=== PATIENT | female | born 1960 | race Caucasian/White ===

== ENCOUNTER → 2017-04-25 | Day surgery (SDC) | payer OTHER ==
[2017-04-25] VITALS (9 sets, daily range): BP systolic 130–145; BP diastolic 68–89; PULSE 88–101; RESP 13–17; O2SAT 96–100
[~2017-04-25] VITALS: Ht 162.6 cm; Wt 86.2 kg
[~2017-04-25] MED LIST: Dexamethasone 4 mg/mL Inj IVPUSH PRN; EPHEDrine Sulfate 50 mg/mL Inj IVPUSH PRN; HYDROmorphone 0.5 mg/0.5 mL iSecure Syringe ONE; HYDROmorphone 1 mg/mL Inj IVPUSH PRN; KEN25CR EXT; Lactated Ringer's 1,000 ML IV ONE; Lactated Ringer's 1,000 ML IV SCH; Lactated Ringer's 500 ML IV PRN; MetoCLOpramide 5 mg/mL 2 mL Inj IVPUSH PRN; Ondansetron 2 mg/mL 2 mL Inj IVPUSH PRN; Phenylephrine 10,000 mCg/mL Inj IVPUSH PRN; TRAM50TA2 PO; fentaNYL-PF 50 mCg/mL 2 mL Inj ONE; oxyCODONE-Acetamin 10-325 mg Tablet PO PRN
[2017-04-25] MEDS: CeFAZolin 2 Gm/50 mL D5W IV Premix IV ONE ×2 (12:28→12:41)
--- NOTE | 2017-04-25 13:05 | PCM.HPANE ---
Patient Data Date of Service: Apr 25, 2017 Surgeon Admitting Provider: Attending Provider:Alejandro Lee MD Primary Care Physician:Percy Mccormick MD Other Provider:Uche Aguila Anesthesia Reason for Visit Bilateral Thigh Masses Ht/WT & BMI Height (Feet): 5 Height (Inches): 4.00 Weight (Kilograms): 86.180 Body Mass Index 32.00 Allergies Coded Allergies: erythromycin base (Verified Allergy, Unknown, vomiting, 04/18/17) Past Anesthesia History Anesthesia History: Denies:: Abnormal Airway, Anesthesia Reactions, Difficult Intubation, Fam Anesthesia Reaction, Fam Malignant Hypertherm, Malignant Hyperthermia Diabetes History Hx Diabetes?: No MRSA MRSA: No Medications Hypertension Medication: No Home Meds Incl Beta Ari: No Reported Medications Triamcinolone Acet (Triamcinolone Acetonide Cream)1 Applic/0.25 Gm Cr1 Applic EXT BID #60 GM Ref 0 04/18/17 Tramadol 50 Mg [id number] Mg PO Q8H PRN For Pain Ref 0 04/18/17 Discontinued Reported Medications Omeprazole 20 Mg Capsule.dr20 Mg PO DAILY Ref 0 04/06/16 Lactobacillus Combo No.11 (Probiotic)1 Each Cap.sprink1 Each PO DAILY 04/05/16 Tramadol 50 Mg Plbmsr67 Mg PO Q4H PRN For Pain Ref 0 04/05/16 Loperamide HCl (Anti-Diarrheal)1 Mg/7.5 Ml Liquid1 Mg PO 04/05/16 History History of ENT Problems?: No HEENT History: Denies:: Abnormal Airway Cataracts Difficult Intubation Glaucoma Hearing Problem Denture Type: None Teeth Condition: Within Normal Limits Hx of Heart Problems?: No Cardiovascular History: Denies:: AICD Chest Pain Edema Heart Murmur Hypertension Irregular Heartbeat Pacemaker Peripheral Vascular Rheumatic Fever Hx of Respiratory Problem?: Yes Respiratory History: Positive for:: Use of C-PAP Machine Denies:: Asthma COPD Emphysema Oxygen Administration Pneumonia Tuberculosis Use of Inhalers / NEBS Hx Neurologic Problems?: No Neurological History: Denies:: Alzheimer's Disease CVA Headaches Multiple Sclerosis Parkinson's Disease Seizures Hx of GI Problems?: Yes Hx of Problems?: No Genitourinary History: Denies:: Kidney Stones Urinary Tract Infection Female Hx: Denies:: Currently (tubal ligation) Skin History: Denies:: History Skin Disorders? Pressure Ulcers Hx Musculoskeletal Problems?: No Musculoskeletal History: Positive for:: Back Injury (hx of L5S1 micro discectomy) Fibromyalgia Osteoarthritis Denies:: Musculoskeletal Trauma Psycho Social History: Positive for:: Anxiety Hx Surgeries?: Yes (tubal ligation,lump removed left axilla, micro discectomy) Hx Any Other Health Problems?: Yes Other History: Denies:: Cancer Thyroid Disease History Blood Transfusions: Positive for:: Accept Blood Products? Denies:: Blood Transfusions Hx Diabetes: No Hx Alcohol Use: YesAlcoholic Drinks Per Day: 2 x weekHx Substance Use: No Smoking Status: Never Smoker Have You Smoked inLast 12 mo: No Stop/Bang Treated for Sleep Apnea?: Yes Do You Have a CPAP Machine?: Yes S-Snoring: Do You Snore Loudly: Yes T-Tired: feel tired, fatigued: Yes O-Obsered: Observed not breath: Yes P-Blood Pressure: treated: No B- Body Mass Index > 35 kg/m2: No A- Age over 50: Yes N- Neck Large Circumference: No G- Gender Male: No JEWEL Total Score: 4 JEWEL Category 1: Yes (1b) Risk Assessment Category Category 1A: Patient has history of documented sleep apnea, and HAS NOT received any narcotic, sedative or anesthesia administration during this stay. Category 1B: Patient has history of documented sleep apnea, and HAS received any narcotic , sedative or anesthesia administration during this stay Category 2: Patient has SUSPECTED Obstructive Sleep Apnea, and HAS received any narcotic , sedative or anesthesia administration during this stay. Category 3: Patient has SUSPECTED Obstructive Sleep Apnea and HAS NOT received narcotic, sedative or anesthesia administration during this stay. Category 4: Outpatient in Procedural Areas with known sleep apnea or who screen positive for High Risk via the STOP/BANG questionnaire. Exam Exam Vital Signs Vital Signs Date Time Temp Pulse Resp B/P Pulse Ox O2 Delivery O2 Flow Rate FiO2 04/25/17 10:26 CPAP/BIPAP 04/25/17 10:21 36.2 88 14 140/76 100 Room Air General Appearance: Alert, Oriented X3, Cooperative HEENT/AIRWAY: MP 1 Lungs: Clear to Auscultation Heart: Exam Unremarkable Meds/Labs/Diagnostics Admission Meds Current Medications Cefazolin Sodium/ Dextrose 2 gm/ Premix 50 ml @ 100 mls/hr PREOP ONCE IV Last administered on 04/25/17t 12:28; Start 04/25/17 at 06:00; Stop 04/25/17 at 06:29; Status DC Lactated Ringer's (Lr) 1,000 ml @ ud STK-MED ONCE IV Last administered on 04/25 10:26; Start 04/25/17 at 10:26; Stop 04/25/17 at 10:27; Status DC Plan Impression Patient chart reviewed, patient interviewed and anesthestic plan with risks, benefits, and alternatives discussed, and informed consent obtained. NPO per Anesth. Guidelines: Yes ASA Physical Status: ASA2 Mod Systemic Disease Anesthetic Plan: GA Bene/Risks/Altern/Consents: Yes HP Complete Prior to Induction: Yes Logan Sal MD Apr 25, 2017 13:05
[2017-04-25] MEDS: fentaNYL-PF 50 mCg/mL 2 mL Inj IVPUSH PRN ×2 (14:15→14:20)
--- NOTE | 2017-04-25 15:28 | PCM.ANEP1 ---
Post Anesthesia PACU Phase 1 Assessment Vital Signs Vital Signs Date Time Temp Pulse Resp B/P Pulse Ox O2 Delivery O2 Flow Rate FiO2 04/25/17 15:10 101 16 145/88 97 Room Air 04/25/17 15:02 93 15 137/86 97 Room Air 04/25/17 14:55 97 17 134/82 98 Room Air 04/25/17 14:40 98 17 133/86 96 Room Air 04/25/17 14:25 96 15 130/68 100 Nasal Cannula 2 04/25/17 14:20 93 17 138/87 97 Nasal Cannula 3 04/25/17 14:15 97 15 131/89 97 Nasal Cannula 3 04/25/17 14:10 36.6 95 13 143/86 96 Nasal Cannula 3 04/25/17 10:26 CPAP/BIPAP 04/25/17 10:21 36.2 88 14 140/76 100 Room Air Anesthetic Administered: GA Level of Alertness: Awake, talking Pain: Yes Pain Scale Score: 4 Nausea or Vomiting: No CV Function & Hydration Stable: Yes Airway Device: Oxygen Delivery: Room Air Lungs: Clear to Auscultation PACU Phase 2 Assessment Patient Instructions Provided: Yes Logan Sal MD Apr 25, 2017 15:28
--- NOTE | 2017-04-30 10:07 | OP ---
[address] [address] OPERATIVE REPORT PATIENT: JOSH BRICENO : 1960 MR#: [id number] ADMIT: 04/25/2017 JOB ID: [id number] DATE OF SURGERY: 04/25/2017 PREOPERATIVE DIAGNOSIS(ES): Bilateral thigh masses. POSTOPERATIVE DIAGNOSIS(ES): Bilateral thigh masses. PROCEDURE: 1. Excision of right lateral and posterior lateral thigh mass 5 cm in diameter. 2. Layered closure of right side defect, total length of layered closures 18 cm. 3. Excision of left thigh mass 6 cm. 4. Layered closure of left thigh defect total length of layered closure 20 cm. SURGEON: Alejandro Lee MD MERCHANT MILLER: Misha Aldana PA-C who was present for necessary retraction, exposure, and closure. DRAINS: Bilateral #10 round Rishabh drains, one on each side. SPECIMEN: 1. Right thigh mass to Pathology. 2. Left thigh mass to Pathology. INDICATIONS FOR PROCEDURE: This is a 56-year-old female patient with a history of slowly enlarging bilateral thigh masses. These masses did not decrease in size even with her reason significant weight loss. The patient also reports some pain and tenderness in the area. At this point, excision of the thigh masses are indicated for tissue diagnosis. PROCEDURE AND FINDINGS: The patient was identified in the preoperative area and surgical sites were marked. With the patient in standing position, I marked patient's bilateral thigh masses. The patient was then taken back to the operating room and placed supine on the operating table. Appropriate time-outs were taken. General anesthesia was induced smoothly. The patient was then turned into the prone position. The patient was then prepped and draped in the usual sterile manner. I first turned my attention to the left thigh mass. Incision was made in the ellipse that encompassed the width of the mass that was marked in the preoperative area. The ellipse was approximately 6 cm in diameter and approximately 20 cm in length. Incision was made with a #10 blade. This was deepened down into the subcutaneous tissue. The mass appears to have vague capsule. I was able to dissect the mass off of the surrounding soft tissue and excised without any difficulty. At this point, a drain was placed into the surgical site exiting through a posterior stab incision. A layer of 3-0 Vicryl [id number] sutures were then placed to reapproximate the Rudy's fascia. A layer of 3-0 Monocryl deep dermal sutures were then placed. At this point, there was some posterior standing cutaneous deformity. This was marked and excised with a #10 blade. The incision was then completely closed with a 3-0 Monocryl deep dermal suture and 4-0 Monocryl running subcuticular suture. I then turned my attention to the right thigh. Again, an ellipse was designed to encompass the mass that was marked preoperatively. The width of the ellipse was approximately 5 cm and the length was approximately 18 cm. Incision was made with a #10 blade. Again, the mass was excised with electrocautery. Hemostasis was obtained with electrocautery. A #10 round Rishabh drain was then placed in the surgical site exiting through a separate posterior stab incision. A layer of 3-0 Vicryl [id number] sutures were then placed, 3-0 Monocryl deep dermal sutures were then placed. Again posterior cutaneous deformity was marked and incised with a #10 blade. The rest of the incision was reapproximated with 3-0 Monocryl deep dermal suture, followed by 4-0 Monocryl running subcuticular suture. Skin glue was applied. The patient tolerated the procedure well. Needle count, sponge count, and instrument counts were correct at the end of the procedure. The patient was extubated and transported to recovery in stable condition.
--- NOTE | 2017-05-03 12:11 | PATH ---
SURGICAL PATHOLOGY Attending Physician:Alejandro Lee CASE STATUS: Signed Out PATIENT NAME: JOSH BRICENO PID: [id number] : 1960 DATE COLLECTED:04/25/2017 23:37 SPECIMEN: 1: Mass, NOS 2: Mass, NOS CLINICAL HISTORY: BILATERAL THIGH MASS 1). RIGHT THIGH MASS 2). LEFT THIGH MASS FINAL DIAGNOSIS: 1.RIGHT THIGH MASS, EXCISION: - SKIN AND SUBCUTANEOUS TISSUE WITH NO EVIDENCE OF NEOPLASM. - MATURE ADIPOSE TISSUE WITH SCATTERED FOREIGN BODY-TYPE GIANT CELL REACTION. - SEE COMMENT. 2.LEFT THIGH MASS, EXCISION: - SKIN AND SUBCUTANEOUS TISSUE WITH NO EVIDENCE OF NEOPLASM. - MATURE ADIPOSE TISSUE WITH RARE SCATTERED FOREIGN BODY-TYPE GIANT CELLS. - SEE COMMENT. COMMENT: Scattered foreign body-type giant cells are identified in both right and left thigh mass specimens. These can be seen secondary to a prior procedure or trauma to the site. Clinical correlation is recommended. ICD10 D21.9 GROSS DESCRIPTION: The specimens are received in formalin, labeled with the patient's name, and sublabeled as the following: (1) right thigh mass; (2) left thigh mass. (1) The specimen consists of a piece of skin with subcutaneous tissue (19.2 x 8.5 x 3.6 cm). The skin is sims-white and unremarkable. The subcutaneous tissue is bright yellow, fatty and homogenous. Ink code: blue-resection margin. Section code: (1A-1E) specimen, serially sectioned, inbound customer service representative. (2) The specimen consists of a piece of skin with subcutaneous tissue (16.3 x 9.2 x 2.8 cm). The skin is sims-white and unremarkable. The subcutaneous tissue is bright yellow, fatty and homogenous. Ink code: blue-resection margin. Section code: (2A-2D) specimen, serially sectioned, inbound customer service representative. 04/26/17 JM MICRO DESCRIPTION: See diagnosis. ICD-9 CODES: CPT CODES: 1: 96053 2: 12334 Electronically Signed Out Sean Parsons MD [facility] [address], [place] [address] Technical component performed at [facility], [facility] [address], [address]
== END | disposition home or self-care (01) ==
LOC: SAS 09:43
PROVIDERS: ATTEND Plastic Surgery
DX: D21.21 Benign neoplasm of connective and other soft tissue of right lower limb, including hip (principal); D21.22 Benign neoplasm of connective and other soft tissue of left lower limb, including hip; G47.30 Sleep apnea, unspecified; M79.7 Fibromyalgia; F41.9 Anxiety disorder, unspecified; Z79.899 Other long term (current) drug therapy
CPT/HCPCS: 12035; 27043; J0690; J1170; J1200; J2175; J2250; J3010; J7120